=== PATIENT | female | born 1955 | race Caucasian/White ===

== ENCOUNTER 2025-05-15 09:20 | Outpatient (CLI) | payer MEDICARE, OTHER | END 2025-05-15 09:21 | disposition home or self-care (01) | LOC: CSHULT 09:20 | PROVIDERS: ATTEND Nurse Practitioner Family | DX: N93.9 Abnormal uterine and vaginal bleeding, unspecified (principal); N85.8 Other specified noninflammatory disorders of uterus | CPT/HCPCS: 76856; 93976 ==